=== PATIENT | female | born 1990 | race Caucasian/White ===

== ENCOUNTER 2018-01-07 04:10 | Outpatient (CLI) | payer MEDICAID ==
[~2018-01-07] VITALS: Ht 167.6 cm; Wt 97.1 kg
[~2018-01-07 04:10] MED LIST: FLU60SYR36 IM; HYDR-3503 PO; PREN-127 PO
[2018-01-07 15:06] VITALS: BP 147/84; Ht 167.6 cm; Wt 97.1 kg
[2018-01-07] MEDS ORDERED: LIDOCAINE/SOD BICARB 8.4% SYR ONE (15:26)
--- NOTE | 2018-01-07 15:36 | RADIOLOGY IMAGING REPORT ---
FACILITY: [facility] - [place] PATIENT NAME: Teena Noe : 1990 MR: [id number] V: [id number] EXAM DATE: ORDERING PHYSICIAN: DELORIS DYE TECHNOLOGIST: Location: [facility] - [place] Patient: Teena Noe : 1990 Visit/Account:[id number] Date of Sevice: 01/07/2018 OB ANATOMICAL SURVEY HISTORY: Anatomic survey COMPARISON: None. TECHNIQUE: Transabdominal imaging was performed for assessment of the fetus and maternal pelvic s tructures. Transvaginal imaging was performed to evaluate the cervical os FINDINGS: Intrauterine gestations: One. presentation: Breech/variable. heart rate: 147 bpm. Amniotic fluid volume: Normal; LIUDMILA 16.26 cm; MVP 5.54 cm. Placenta: Anterior. Uterus: Gravid, otherwise grossly unremarkable where visualized. Maternal adnexa/ovaries: Grossly unremarkable, ovaries not visualized. Cervix: The internal cervical os is widely open. Measuring approximately 1.7 cm in diameter. The ex ternal cervical os likewise appears open measuring approximately 8 mm in diameter. There is fluid ch jose length from the internal to external cervical os. Cervical length is approximately 2.6 cm Gestational Parameters: BPD: 5.13 cm, 70 percentile HC: 19.18 cm, 16th percentile AC: 16.47 cm, 61st percentile FL: 3.21 cm, 12th percentile Average ultrasound age (AUA): 21 weeks/ two days Estimated age based on LMP: 21 weeks/ zero days, 48th percentile Estimated weight (EFW): 386 grams +/- 37 grams Anatomic Survey: Intracranial structures, 4-chamber heart, stomach, kidneys, urinary bladder, spine, 3-vessel cord and cord insertion are unremarkable. Two upper and two lower extremities visualized. The profile could not be obtained at this time IMPRESSION: Single viable fetus in breech presentation with an estimated gestational age by measurements of 21 we eks and two days. The estimated weight is 386 g The internal and external cervical os are both open with fluid extending from the internal to the ext ernal cervical os. Cervical length is approximately 2.6 cm Results were called to DELORIS DYE at 01/07/2018 3:32 PM. Report Dictated By: Izzy Machado MD at 01/07/2018 3:12 PM Report E-Signed By: Izzy Machado MD at 01/07/2018 3:33 PM WSN:[email or web address]
--- NOTE | 2018-01-07 16:15 | History & Physical ---
History of Present Illness Age of Patient: 27 : 1 Para or TPAL: 0 EDC per LMP: May 20, 2018 Estimated Gestational Age: 21.0 Chief Complaint dilated cervix History of Present Illness Pt presents to Labor and Delivery directly from radiology where she was getting an anatomical u/s done. Apparently they saw a dilated cervix and sent her from there. My review of images was of a dilated internal os with funneling to the external os but apparently closed cervix. This was later confirmed by exam. Pt denies vaginal bleeding or any significant PTL symptoms. She has felt "crampy" today like menstrual cramps. has been uncomplicated otherwise. Past Medical, Surgical, Family and Obstetric Histories reviewed. Please see ACOG chart. History Allergies: Coded Allergies: No Known Drug Allergies (Unverified , 10/29/12) Family History: FH: hypertension FATHER MOTHER FH: thyroid disease MOTHER Med Rec Home Meds Reported Medications Vits W-Ca,Fe,Fa(<1MG) ( VITAMINS) 1 Each Tablet, 1 EACH PO DAILY, TAB 01/06/18 Discontinued Reported Medications Hydrocodone Bit/Acetaminophen (LORTAB 7.5-500 TABLET) 1 Each Tablet, 1 EACH PO Q6H 10/29/12 Review of Systems All Systems Reviewed/Normal: Yes, Except as Noted Exam General Exam Vital Signs Vital Signs Date Time Temp Pulse Resp B/P (MAP) Pulse Ox O2 Delivery O2 Flow Rate FiO2 01/07/18 15:06 99.4 99 22 147/84 (105) Room Air General Apperance: Alert/Awake/No Acute Distress Neuro: No Gross deficits Eyes: Normal Extraocular Movement & Vison ENT: Normal Cardiovascular: Regular Rate and Rhythm Respiratory: No Respiratory Distress Abdomen: Soft, Non-Tender, Non-Distended, Gravid - Non-Tender Extremities: No Cyanosis,Clubbing or Edema Integumentary: Skin Intact without Lesions or Rash Psychological: Alert & Oriented X3, Appropriate Mood & Affect Cervical Dialation: 0 Cervical Effacement (%): 75 Cervical Consistency: Moderate Cervical Position: Posterior Fetus Heart Tones: 130 (doppler) Assessment and Plan Problems: (1) Cervical insufficiency during in second trimester, antepartum Assessment & Plan: It doesn't appear she is in active labor. This likely represents a slow dilation from a cervical insufficiency problem. Discussed noemi Vila at OBX at [facility] in [place] and he agrees. He recommends she come by private car immediately to [facility] for evaluation by him and probable cerclage placement. I instructed the pt in this and questions answered. BELKIS SUNG MD Jan 07, 2018 16:15
--- NOTE | 2018-01-07 16:18 | Short(Outpt) Discharge Summary ---
Discharge Summary Reason for Hosp/Final Diag: (1) Cervical insufficiency during in second trimester, antepartum Hospital Course & Plan: It doesn't appear she is in active labor. This likely represents a slow dilation from a cervical insufficiency problem. Discussed with Dr. Vila at OBX at [facility] in [place] and he agrees. He recommends she come by private car immediately to [facility] for evaluation by him and probable cerclage placement. I instructed the pt in this and questions answered. Departure Discharge to: Another Hospital (by private transfer) Discharge Instructions Home Meds Reported Medications Vits W-Ca,Fe,Fa(<1MG) ( VITAMINS) 1 Each Tablet, 1 EACH PO DAILY, TAB 01/06/18 Discontinued Reported Medications Hydrocodone Bit/Acetaminophen (LORTAB 7.5-500 TABLET) 1 Each Tablet, 1 EACH PO Q6H 10/29/12 Follow up Referrals: Other Referral @ Obstetrics with [facility] Activity: As Tolerated, No Heavy Lifting, No Exertion Copies to: DELORIS DYE DO; BELKIS SUNG MD ; BELKIS SUNG MD Jan 07, 2018 16:18
== END 2018-01-07 16:30 | disposition home or self-care (01) ==
LOC: US 04:10 → OB 14:50 → UNDOADMIN 14:50 → OB 14:50 → US 16:30 → UNDODISIN 16:30
PROVIDERS: ATTEND Student in an Organized Health Care Education/Training Program
DX: Z34.92 Encounter for supervision of normal pregnancy, unspecified, second trimester (principal)
CPT/HCPCS: 99213

== ENCOUNTER 2018-01-10 12:10 | Outpatient (CLI) | payer MEDICAID ==
[~2018-01-10] VITALS: Ht 167.6 cm; Wt 97.1 kg
[2018-01-10 12:30] VITALS: BP 134/84; Ht 167.6 cm; Wt 97.1 kg
--- NOTE | 2018-01-10 12:53 | History & Physical ---
History of Present Illness EDC per LMP: May 20, 2018 Estimated Gestational Age: 21.3 Chief Complaint Pelvic cramping History of Present Illness 27yo at 21w3d presents with pelvic cramping this morning. She had an emergent cerclage on 01/07/[address] Vila at [facility] after incidental cervical insufficiency found on anatomical ultrasound. She was discharged with Motrin 600mg. She woke up this morning with a constant sharp right pelvic pain. This resolved during her drive here after taking Motrin. No cramping off and on. No back pain. No bleeding or vaginal discharge. She has no other complications. History Patient's Blood Type: A Positive Rubella Status: Immune Group B Strep Screen: Unknown Obstetrical History: Primip Past Medical History: PMH: None PSH: Heel fusion, cerclage insertion Allergies: Coded Allergies: No Known Drug Allergies (Unverified , 10/29/12) Social History: No T/E/D. Family History: FH: hypertension FATHER MOTHER FH: thyroid disease MOTHER Med Rec Home Meds Reported Medications Vits W-Ca,Fe,Fa(<1MG) ( VITAMINS) 1 Each Tablet, 1 EACH PO DAILY, TAB 01/06/18 Discontinued Reported Medications Hydrocodone Bit/Acetaminophen (LORTAB 7.5-500 TABLET) 1 Each Tablet, 1 EACH PO Q6H 10/29/12 Review of Systems Constitutional: No Fever Neurological: No Syncope Eyes: No Vision Change Cardiovascular: No Chest Pain, No Palpitations Respiratory: No Shortness of Breath Gastrointestinal: No Nausea, No Vomiting, No Diarrhea Genitourinary: No Dysuria Musculoskeletal: No Pain Psychiatric: No Depression, No Anxiety Exam General Exam Vital Signs VS reviewed General Apperance: Alert/Awake/No Acute Distress Neuro: No Gross deficits Eyes: Normal Extraocular Movement & Vison Respiratory: No Respiratory Distress Abdomen: Gravid - Non-Tender Extremities: No Cyanosis,Clubbing or Edema Integumentary: Skin Intact without Lesions or Rash Psychological: Alert & Oriented X3, Appropriate Mood & Affect Fetus Heart Tones: 150 Assessment and Plan Problems: (1) Cervical insufficiency during in second trimester, antepartum Assessment & Plan: 27yo at 21w3d presents with constant pelvic pain this morning, 3 days postop from emergent cerclage. She has no signs/sx of labor or uterine activity. No indication for pelvic exam today. Will monitor toco and if remains flat, will discharge to home with follow up as scheduled tomorrow. Discussed precautions for bleeding, cramping, fever. GERMAN ELLIS MD Jan 10, 2018 12:53
--- NOTE | 2018-01-10 12:54 | Short(Outpt) Discharge Summary ---
Discharge Summary Reason for Hosp/Final Diag: (1) Cervical insufficiency during in second trimester, antepartum Hospital Course & Plan: 27yo at 21w3d presents with constant pelvic pain this morning, 3 days postop from emergent cerclage. She has no signs/sx of labor or uterine activity. No indication for pelvic exam today. Will monitor toco and if remains flat, will discharge to home with follow up as scheduled tomorrow. Discussed precautions for bleeding, cramping, fever. Departure Discharge to: Home, Self Care Discharge Instructions Home Meds Reported Medications Vits W-Ca,Fe,Fa(<1MG) ( VITAMINS) 1 Each Tablet, 1 EACH PO DAILY, TAB 01/06/18 Discontinued Reported Medications Hydrocodone Bit/Acetaminophen (LORTAB 7.5-500 TABLET) 1 Each Tablet, 1 EACH PO Q6H 10/29/12 Follow up Referrals: GYMNASTICS INSTRUCTOR - 01/11/18 @ [facility] with DELORIS DYE DO Diet: Regular Activity: As Tolerated GERMAN ELLIS MD Jan 10, 2018 12:54
== END 2018-01-10 14:00 | disposition home or self-care (01) ==
LOC: OB 12:10 → L&D 12:10 → UNDOADMIN 12:10 → OB 12:10 → L&D 14:00 → UNDODISIN 14:00 → EDSTATUS 01-12 07:50
PROVIDERS: ATTEND Obstetrics & Gynecology
DX: O26.872 Cervical shortening, second trimester (principal); O99.89 Other specified diseases and conditions complicating pregnancy, childbirth and the puerperium; Z3A.21 21 weeks gestation of pregnancy
CPT/HCPCS: 99213

== ENCOUNTER → 2018-01-28 | Outpatient (CLI) | payer SELFPAY ==
[2018-01-10 12:30] VITALS: BMI 34.5
--- NOTE | 2018-01-28 10:03 | RADIOLOGY IMAGING REPORT ---
FACILITY: [facility] [place] PATIENT NAME: Teena Noe : 1990 MR: [id number] V: [id number] EXAM DATE: ORDERING PHYSICIAN: DELORIS DYE TECHNOLOGIST: Location: [facility] - [place] Patient: Teena Noe : 1990 Visit/Account:[id number] Date of Sevice: 01/28/2018 Exam type: OB LIMITED History: Follow-up profile images. Patient status post cerclage Comparison: December 30, 2017. Findings: There is a single fetus in breech presentation. heart rate is 161 bpm Placenta is anterior Images of the profile are unremarkable The cervical length is 4.32 cm. The internal cervical os is open measuring 2.35 cm in diameter. The external cervical os appears closed as the patient is status post cerclage IMPRESSION: 1. Profile images appear unremarkable Single fetus in breech presentation The cervical length is 4.32 cm. The internal cervical os is open measuring 2.35 cm in diameter howev er the external cervical os appears closed as the patient is status post a recent cerclage procedure Report Dictated By: Izzy Machado MD at 01/28/2018 9:56 AM Report E-Signed By: Izzy Machado MD at 01/28/2018 9:58 AM WSN:[email or web address]
== END ==
LOC: US 02:48
PROVIDERS: ATTEND Student in an Organized Health Care Education/Training Program
DX: Z02.9 Encounter for administrative examinations, unspecified (principal)

== ENCOUNTER → 2018-03-01 | Outpatient (CLI) | payer MEDICAID ==
[2018-01-10 12:30] VITALS: BMI 34.5
[~2018-03-01] MED LIST changes: +DIPH0.5D12 IM
== END ==
LOC: LAB 08:41
PROVIDERS: ATTEND Student in an Organized Health Care Education/Training Program
DX: O09.92 Supervision of high risk pregnancy, unspecified, second trimester (principal); Z3A.28 28 weeks gestation of pregnancy
CPT/HCPCS: 36415; 82950; 85027

== ENCOUNTER → 2018-04-06 | Outpatient (CLI) | payer MEDICAID ==
[2018-01-10 12:30] VITALS: BMI 34.5
[~2018-04-06] MED LIST changes: +AMOX-559 PO; +BET6I IM ONLY; +BLOO-292; +BLOO-960 MC; +IBUP800T37 PO; +LANC-165; +METR500T15 PO; +NIFE10CA38 PO; +OXYC-865 PO
== END ==
LOC: LAB 10:59
PROVIDERS: ATTEND Advanced Practice Midwife
DX: O26.893 Other specified pregnancy related conditions, third trimester (principal); N89.8 Other specified noninflammatory disorders of vagina
CPT/HCPCS: 84112

== ENCOUNTER → 2018-04-13 | Outpatient (CLI) | payer MEDICAID ==
[~2018-04-13] VITALS: Ht 167.6 cm; Wt 108.0 kg
[~2018-04-13] MED LIST changes: -AMOX-559 PO; +BETAMETHASONE/ACETATE 6 MG/1ML IM ONLY ONE; -METR500T15 PO; +NIFEdipine 10 MG CAP PO ONE; +NIFEdipine 10 MG CAP PO SCH
[2018-04-13] MEDS: LR(*) 1000 ML BAG 1,000 ML IV PRN ×2 (17:55→19:00)
[2018-04-13 21:46] VITALS: BP 136/85; Ht 167.6 cm; Wt 108.0 kg
== END ==
LOC: L&D 04-13 16:48 → UNDOADMIN 16:48 → OB 16:48 → L&D 16:48 → UNDODISIN 21:00 → EDSTATUS 04-18 09:36
PROVIDERS: ATTEND Student in an Organized Health Care Education/Training Program
DX: O62.0 Primary inadequate contractions (principal); Z3A.34 34 weeks gestation of pregnancy
CPT/HCPCS: 59025; J0702; J7120

== ENCOUNTER 2018-04-16 19:33 | Inpatient (IN) | payer MEDICAID ==
[2018-04-13 21:46] VITALS: Wt 110.2 kg
[~2018-04-16 19:33] MED LIST changes: -BETAMETHASONE/ACETATE 6 MG/1ML IM ONLY ONE; -IBUP800T37 PO; -NIFEdipine 10 MG CAP PO ONE; -NIFEdipine 10 MG CAP PO SCH; -OXYC-865 PO
[2018-04-16] MEDS ORDERED: NIFEdipine 10 MG CAP PO ONE ×2 (20:50→21:50)
[2018-04-16] MEDS: LR(*) 1000 ML BAG 1,000 ML IV PRN (21:04)
[2018-04-16] MEDS ORDERED: APAP/HYDROCODONE 325/5 TAB PO PRN (21:50)
[2018-04-16] MEDS ORDERED: ACETAMINOPHEN 500 MG TAB PO PRN (21:50)
[2018-04-16] MEDS ORDERED: ONDANSETRON 4 MG/2 ML VIAL IVP PRN (22:25)
--- NOTE | 2018-04-16 22:55 | History & Physical ---
History of Present Illness Age of Patient: 28 : 1 Para or TPAL: 0 EDC per LMP: May 20, 2018 Estimated Gestational Age: 35.1 Chief Complaint Contractions History of Present Illness Pt is a 28 y/o @ 35-1/7 weeks gestation awho presents to L&D with a chief complaint of Painful contractions. Reports contractions started later this evening and have gotten progressively closer together. Pt reports she feels these are now less then 3 minutes apart. Pt reports no gush of fluid. No vaginal bleeding. Good movement. History Patient's Blood Type: A Positive Rubella Status: Immune Group B Strep Screen: Unknown Obstetrical History: Emergency cerclage at 20 weeks gestation by [facility] in [place] Past Medical History: Non contributory Allergies: Coded Allergies: No Known Drug Allergies (Unverified , 10/29/12) Social History: No T/E/D. Family History: FH: hypertension FATHER MOTHER FH: thyroid disease MOTHER Med Rec Home Meds Active Scripts Nifedipine (PROCARDIA) 10 Mg Capsule, 10 MG PO Q4H PRN for CONTRACTIONS, #20 CAPSULE 0 Refills Prov:DELORIS DYE DO 04/14/18 True Metrix Glucose Test Strip (True Metrix Glucose Test Strip) 1 Each Strip, BOX QID, #1 3 Refills Prov:DELORIS DYE DO 03/17/18 Lancets (Blood Lancets) 30 Gauge Each, BOX QID, #1 3 Refills Prov:DELORIS DYE DO 03/17/18 Blood-Glucose Meter (BLOOD GLUCOSE METER) 1 Each Each, EACH MC, #1 0 Refills Prov:DELORIS DYE DO 03/17/18 Reported Medications Vits W-Ca,Fe,Fa(<1MG) ( VITAMINS) 1 Each Tablet, 1 EACH PO DAILY, TAB 01/06/18 Review of Systems All Systems Reviewed/Normal: Yes, Except as Noted Constitutional: No Fever, No Weight Loss, No Weight Gain, No Chills, No Night Sweats, No Other Neurological: No Syncope, No Confusion, No Weakness, No Dizziness, No Slurred Speech, No Other Eyes: No Vision Change, No Loss of Vision, No Photophobia, No Other ENT: No Hearing Loss, No Sinus Congestion, No Sore Throat, No Ear Ache, No Tinnitus, No Other Cardiovascular: No Chest Pain, No Palpitations, No Orthostatic Hypotension, No Other Respiratory: No Shortness of Breath, No Cough, No Wheezing, No Other Gastrointestinal: No Nausea, No Vomiting, No Diarrhea, No Dysphagia, No Constipation, No Early Satiety, No Hematemesis, No Hematochezia, No Melena, No Abdominal Pain, No Other Genitourinary: No Dysuria, No Hematuria, No Urinary Incontinence, No Other Musculoskeletal: No Pain, No Sprain, No Strain, No Impaired Mobility, No Other Psychiatric: No Depression, No Anxiety, No Other Exam General Exam General Apperance: Alert/Awake/No Acute Distress Neuro: No Gross deficits Eyes: Normal Extraocular Movement & Vison ENT: Normal Cardiovascular: Regular Rate and Rhythm Respiratory: No Respiratory Distress Cervical Dialation: 0 Fetus Heart Tones: 140 Heart Tone Variabilty: Moderate FHT Accelerations: 15X15 FHT Decelerations: None Medical Decision Making Pre-Admit Course Medical Record Review: Yes VTE Prophylasis: Adult Deep Vein Thrombosis/Pulmonary: No 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 Received Betamethasone 04/13/18 and 04/14/18. Discussed patient findings with [facility] who suggests seeing if there is any improvement with Nifedipine and if unable to slo w or stop contractions then consider removing cerclage. Pt has received 20 mg Nifedipine po and seems to be improving. If that changes will remove cerclage and monitor patient overnight. DELORIS DYE DO Apr 16, 2018 22:55
[2018-04-17] VITALS (12 sets, daily range): BP systolic 109–145; BP diastolic 55–94
[2018-04-17] MEDS ORDERED: CALCIUM CARBONATE 500 MG CHEW PO PRN (01:10)
[2018-04-17] MEDS: NIFEdipine 10 MG CAP PO PRN ×4 (01:33→10:40)
[2018-04-17] MEDS ORDERED: fentaNYL CITR 100 MCG/2 ML AMP IT PRN (06:15)
[2018-04-17] MEDS ORDERED: EPIDURAL KEYS XX PRN (06:15)
[2018-04-17] MEDS ORDERED: FENTANYL/ROPIVACAINE 100 ML BAG EPI PRN (06:15)
[2018-04-17] MEDS ORDERED: LIDO/EPI 2% MPF 1:200,000 20ML EPI PRN (06:15)
[2018-04-17] MEDS ORDERED: LIDOCAINE/PF 2% 200MG/10ML AMP 200 MG/10 ML AMPUL EPI PRN (06:15)
[2018-04-17] MEDS ORDERED: BUPIVACAINE 0.5% INJ 30ML VIAL EPI PRN (06:15)
[2018-04-17] MEDS ORDERED: BUPIVACAINE 0.25% MPF INJ EPI PRN (06:15)
--- NOTE | 2018-04-17 06:15 | Labor Progress Note ---
Labor Subjective Progress Notes Subjective Still feeling contractions but they aren't as regular. Pain controlled with po pain medication. Still using procardia with minimal help. Pt does report spotting after using the restroom with in the last hour. 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 I will plan to get an EFW and presentation of the baby. Will plan for epidural later this morning and cerclage removal. DELORIS DYE DO Apr 17, 2018 06:15
[2018-04-17] MEDS ORDERED: APAP/HYDROCODONE 325/5 TAB PO ONE (07:00)
--- NOTE | 2018-04-17 08:06 | Anesthesia OB Pre-Anes Eval ---
History of Present Illness OB Anesthesia Diagnosis: gestational hypertension (required emergency cerclage at 20 weeks gestation), other (removal of cerclage) Current Complication: gestational hypertention EDC: May 20, 2018 : 1 Para: 0 Weight (Pounds): 238 Past Medical History Medical History: obesity Surgical History: noncontributory Previous Anesthesia: general, spinal Attended Childbirth Classes?: No Hx Anesthesia Reactions: No Hx Family Anesthesia Reaction: No Home Meds Active Scripts Nifedipine (PROCARDIA) 10 Mg Capsule, 10 MG PO Q4H PRN for CONTRACTIONS, #20 CAPSULE 0 Refills Prov:DELORIS DYE DO 04/14/18 True Metrix Glucose Test Strip (True Metrix Glucose Test Strip) 1 Each Strip, BOX QID, #1 3 Refills Prov:DELORIS DYE DO 03/17/18 Lancets (Blood Lancets) 30 Gauge Each, BOX QID, #1 3 Refills Prov:DELORIS DYE DO 03/17/18 Blood-Glucose Meter (BLOOD GLUCOSE METER) 1 Each Each, EACH MC, #1 0 Refills Prov:ANDREA DYEK DO 03/17/18 Reported Medications Vits W-Ca,Fe,Fa(<1MG) ( VITAMINS) 1 Each Tablet, 1 EACH PO DAILY, TAB 01/06/18 Allergies: Coded Allergies: No Known Drug Allergies (Unverified , 10/29/12) Anesthesia OB ROS Neurological: No migraines/headaches, No seizures, No neuropathy, No other ENT: Denies Tooth caps, Denies Loose teeth, Denies Chipped teeth, Denies Dentures, Denies Bridges, Denies Retainers, Denies Veneers, Denies Implants, Denies Tongue ring, Denies Other Pulmonary: No asthma, No smoker (pks/day/yrs), No other Airway Class: lll Cardiovascular ROS: No edema, No arrhythmia, No other GI ROS: NPO ROS: No Herpes, No STD(s), No Liver Disease, No Renal Disease, No Other Endocrine ROS: No diabetes, No gestational diabetes, No thyroid disorder, No other Musculoskeletal ROS: No low back pain, No low back injury, No scoliosis, No other ASA Classification: 3 Assessment and Plan Anesthesia Plan: ALISIA AG CRNA Apr 17, 2018 08:06
[2018-04-17] MEDS ORDERED: ceFAZolin(*) 2GM/D5W 50ML 50 ML IVPB PRN (08:31)
[2018-04-17] MEDS ORDERED: FAMOTIDINE(*) 20MG/50ML PREMIX 50 ML IVPB PRN (08:31)
[2018-04-17 09:06] LABS: PLATELET COUNT, AUTOMATED 267 K/uL (150-450)
[2018-04-17] MEDS: LR(*) 1000 ML BAG 1,000 ML IV PRN ×2 (09:40→12:15)
--- NOTE | 2018-04-17 10:45 | RADIOLOGY IMAGING REPORT ---
FACILITY: [facility] - [place] PATIENT NAME: Teena Noe : 1990 MR: [id number] V: [id number] EXAM DATE: ORDERING PHYSICIAN: DELORIS DYE TECHNOLOGIST: [place] [facility] [place] Noe : 1990 Visit/Account:[id number] Date of Sevice: 04/17/2018 OB Ultrasound > 14 weeks with anatomic evaluation HISTORY: Cerclage removal COMPARISON STUDIES: OB ultrasound January 28, 2018 FINDINGS: Intrauterine gestations: one presentation: Breech heart rate: 129 bpm Amniotic fluid index: 20.1 cm Largest amniotic fluid pocket 7.93 cm Placenta: Anterior without previa Uterus: gravid, otherwise normal Maternal adnexa: Unremarkable Cervix: Not visualized Gestational Parameters: BPD: 8.70 cm 35 weeks 1 day, 50th percentile HC: 32.14 cm 36 weeks 2 days 41st percentile AC: 32.09 cm 36 weeks 1 day, 77th percentile FL: 6.95 cm 35 weeks 5 days, 53rd percentile Average ultrasound age (AUA): 35 weeks 6 days SEVERIANO: May 16, 2018 Estimated weight (EFW): 2784 g, 65th percentile by LMP Anatomic Survey: Not performed IMPRESSION: 1. Single live intrauterine gestation; estimated ultrasound age 35 weeks, 6 days. This correlates shanique ropriately with the LMP.. 2. Breech positioning. LIUDMILA: 20.1 cm Report Dictated By: Edwin Velasco MD at 04/17/2018 10:25 AM Report E-Signed By: Edwin Velasco MD at 04/17/2018 10:41 AM WSN:[id number]
--- NOTE | 2018-04-17 11:32 | Labor Progress Note ---
Labor Subjective Progress Notes Subjective Pt reports she is still having contractions. Reports she has developed more spotting vaginally. No loss of amniotic fluid. Good movement. Contractions managed with Nifedipine but still speedy regularly. 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 Still speedy with procardia on board. Discussed patient care with MFM who recommends leaving the cerclage in place and not attempting an ECV. Delivery and then removal of the cerclage post delivery. DELORIS DYE DO Apr 17, 2018 11:32
[2018-04-17] MEDS ORDERED: OXYTOCIN 10 UNIT/ML SDV ONE (12:05)
[2018-04-17] MEDS ORDERED: fentaNYL CITR 100 MCG/2 ML AMP ONE (12:07)
[2018-04-17] MEDS ORDERED: MORPHINE PF 5 MG/10 ML AMP ONE (12:07)
[2018-04-17] MEDS ORDERED: KETOROLAC 30 MG/ML VIAL ONE (13:34)
[2018-04-17] MEDS ORDERED: NALBUPHINE HCL 10 MG/ML AMP IVP PRN (14:20)
[2018-04-17] MEDS ORDERED: diphenhydrAMINE 50 MG/ML VIAL IV PRN (14:20)
--- NOTE | 2018-04-17 14:20 | Procedure Note ---
Anesthetic Placement Note Anesthesia Plan: SAB Permit for Anesthesia Signed: Yes Anesthesia Technique: Lateral Anesthesia Prep: Chlorhexidine Interspace: L 4-5 Local Anesthetic: 1% Lidocaine, 25 Gauge Needle Amount Local - cc's: 5 Anesthesia Needle: 25g Pencan w/Introducer Anesthesia Attempts: 1 (with 2 needle redirections) Cerebral Spinal Fluid: Yes, Clear Anesthesia Tray: Lot Number ([id number]), Expiration Date (02/09/2019), Reference Number ([id number]) Anesthesia Medications: Intrathecal Dose: mcg Fentanyl (15), mg Marcaine MPF, mg Astromorph (0.15), mg Spinal Bupivicaine (12.75), Time (1245) Complications: None ALISIA LAINEZ CRNA Apr 17, 2018 14:20
--- NOTE | 2018-04-17 14:36 | NUR ---
1404 PT REC'D IN PACU VIA CART, SAFETY MAINTAINED, SBAR REPORT FROM Angelia LAINEZ CRNA. PT IN MINIMAL PAIN, NO NAUSEA 1415 SPINAL LEVEL S1, PAIN 3/10 WITH FUNDAL MASSAGE, 1/10 AT REST, 50ML RED URINE WITH CLOTS EMPTIED FROM CATHETER. UPDATED ON BABY'S CONDITION BYB NURSERY NURSE 1427 PT TOLERATING ICE CHIPS, FUNDAL MASSAGE, UTERUS FIRMS UP WITH MASSAGE, PASSED SMALL CLOT 1430 STUART CARE PROVIDED, PT PASSED SOME STOOL, HOB ELEVATED SLIGHTLY, NO RESPORTS OF HEADACHE 1441 PARTNER CRISTIN AT BEDSIDE 1445 FUNDAL MASSAGE, UTERUS FIRMS UP WITH MASSAGE, STILL IN SAME POSITION
[2018-04-17] MEDS ORDERED: OXYTOCIN 30 UNIT/D5LR 500 ML 500 ML IV PRN (15:16)
--- NOTE | 2018-04-17 15:16 | Labor Progress Note ---
Labor Subjective Progress Notes Subjective Late Timed note: Pt was having increased pressure. Increasing fluid discharge. 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 Pt to go to the OR for delivery for PTL. DELORIS DYE DO Apr 17, 2018 15:16
[2018-04-17] MEDS ORDERED: PROMETHAZINE 25 MG/ML 1 ML AMP IVP PRN (15:20)
[2018-04-17] MEDS ORDERED: LANOLIN OINT 7 GM TUBE TP PRN (15:20)
[2018-04-17] MEDS ORDERED: ACETAMINOPHEN 325 MG TAB PO PRN (15:20)
[2018-04-17] MEDS ORDERED: ONDANSETRON 4 MG/2 ML VIAL IV PRN (15:20)
[2018-04-17] MEDS ORDERED: SIMETHICONE 80 MG CHEW CHEW PRN (15:20)
[2018-04-17] MEDS ORDERED: ZOLPIDEM TARTRATE 5 MG TAB PO PRN (15:20)
--- NOTE | 2018-04-17 15:42 | Post Operative Note ---
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 3 vc/ip. Normal tubes and ovaries bilaterally. Footling breech. Procedure(s): 1LTCS Cerclage removal Specimen Removed:(Maybe N/A): Placental Cultures Placenta Complications: 0 known Fluids Fluids: 600 LR u/o 200 Estimated Blood Loss: 800 Dictated Date OP Note Dictated: Apr 17, 2018 DELORIS BERRY DO Apr 17, 2018 15:42
[2018-04-17] MEDS: DLR(*) 1000 ML BAG 1,000 ML IV PRN (16:29)
[2018-04-17] MEDS: GENTAMICIN/NS 80 MG/100 ML PB 100 ML IVPB SCH ×2 (16:29→23:49)
[2018-04-17] MEDS: CLINDAMYCIN 900 MG/6 ML 900 MG in NS(*) 0.9% 100 ML BAG 100 ML IVPB SCH (17:34)
[2018-04-17] MEDS: AMPICILLIN 2 GM VIAL 2 GM in NS(*) 0.9% 100 ML ADDVANT BAG 100 ML IVPB SCH ×2 (18:30→23:12)
[2018-04-17] MEDS ORDERED: FAMOTIDINE(*) 20MG/50ML PREMIX 50 ML IVPB ONE (19:56)
[2018-04-17] MEDS: DOCUSATE CALCIUM 240 MG CAP PO SCH (20:32)
[2018-04-17] MEDS: KETOROLAC 30 MG/ML VIAL IVP SCH (20:32)
[2018-04-17] MEDS: FAMOTIDINE 20 MG TAB PO SCH (20:32)
[2018-04-18] MEDS: CLINDAMYCIN 900 MG/6 ML 900 MG in NS(*) 0.9% 100 ML BAG 100 ML IVPB SCH ×3 (01:26→17:45)
[2018-04-18] MEDS: KETOROLAC 30 MG/ML VIAL IVP SCH ×2 (02:35→07:49)
--- NOTE | 2018-04-18 02:44 | OPERATIVE REPORT 1 ---
EVENT DATE: April 17, 2018 SURGEON: Matthew Berry DO ANESTHESIA: Spinal, Sarthak Jansen CRNA SECRETARY BOARD OF COMMISSIONERS: Kat Mejía, Certified Nurse Maitre D PREOPERATIVE DIAGNOSIS 1. A 28-year-old 1, para 0, at 35-2/7 weeks' gestation. 2. labor. 3. Cerclage secondary to cervical incompetence at 20 weeks. 4. Breech presentation. POSTOPERATIVE DIAGNOSIS 1. A 28-year-old 1, para 0, at 35-2/7 weeks' gestation. 2. labor. 3. Cerclage secondary to cervical incompetence at 20 weeks. 4. Breech presentation. 5. Delivered. PROCEDURE Primary low transverse /cerclage removal. FINDINGS Live born male infant at 1302 with Apgars of 8 and 9, weighing 2620 g, 5 pounds 12 ounces. Three-vessel cord, intact placenta, normal tubes and ovaries bilaterally. Baby was noted to be footling breech. PATHOLOGY Placenta cultures as well as placenta. ESTIMATED BLOOD LOSS 800 mL. URINE OUTPUT 200 mL. INTRAVENOUS FLUIDS Lactated Ringer's 600 mL. COMPLICATIONS None known. CONDITION Stable x2. Mother to the recovery room and infant to the nursery for respiratory support secondary to prematurity. COUNTS Correct for all needles, laps, sponges, and instruments. LABOR SUMMARY Patient is a 28-year-old 1, para 0, at 35-2/7 weeks' gestation, who presents to clinic with a chief complaint of painful contractions. Patient is a known patient to have cervical incompetence and had a cerclage placed at 20 weeks. Patient was speedy roughly every three to six minutes regularly. She was given Procardia 20 mg every three hours to help with contractions. This did slow down contractions, but ultimately patient began to have some vaginal bleeding. It was discussed with Maternal- Medicine that, because of the vaginal bleeding, there was a good chance she was laboring. It was also discussed the possibility of transfer to a large facility for NICU support. Prior to transport, patient reported a significant amount of fluid vaginally. Speculum exam was performed, and bulging amniotic membranes were noted in the vagina, so at this point the patient was counseled for a delivery secondary to breech presentation with advanced cervical dilatation and labor. Patient signed the appropriate consents. Antibiotics were given, and the patient was taken to the operating room. DESCRIPTION OF PROCEDURE Patient was taken to the operating room, where she had spinal anesthesia placed. Once spinal anesthesia was placed, she was then placed in the dorsal supine position. She was then prepped and draped in the usual sterile manner. A Pfannenstiel skin incision was then made with a scalpel. This was carried sharply down to the layer of the fascia. Once the fascia was visualized, it was notched bilaterally. Harkins scissors were then used to extend that incision laterally. Rectus muscles were dissected off of the rectal fascia both inferiorly and superiorly. Rectus muscles were in the midline. Peritoneum was entered sharply with Metzenbaum scissors. Gentle stretch was performed. Bladder blade was placed. A bladder flap was created using Metzenbaum scissors and [place] pickups. A low transverse incision was then created on the uterus with a scalpel down to the layer of the amnion. Once the amnion was visualized, it was ruptured bluntly with surgeon's finger. A very foul-smelling, purulent amniotic fluid that was clear came through the hysterotomy. At this point, the surgeon's hand was placed into the hysterotomy down into the pelvis. The infant's feet were grasped and brought to the level of the hysterotomy without any difficulty. The was spine-down. It was easily turned to spine-up. Gentle traction was performed with the surgeon's hands on the sacrum and over the ASIS bilaterally. This was performed until the shoulders were visualized. The left shoulder was the first shoulder to be seen. The left arm was brought through the hysterotomy by flexing at the elbow and gently sweeping through and out of the hysterotomy. The infant was then turned. The same procedure was performed to deliver the right arm without any difficulty. At this point, the SMV maneuver was used to deliver the infant's head with the surgeon's fingers placed on the maxilla. The 's head was flexed, and with gentle pressure, the 's head was brought through the hysterotomy. At this point, a vigorous male infant was delivered. Mouth and nose were bulb- suctioned. The cord was clamped x2 and handed to awaiting nursing staff to take to the warmer to be vigorously cleaned and dried. Cord blood gas were obtained. The placenta delivered spontaneously with manual traction. The uterus was then exteriorized, cleaned of all clot and debris. The hysterotomy was then closed with a 0 Monocryl in a running manner. An imbrication stitch was then used to help with hemostasis. The posterior gutter was cleaned of all clot and debris. The uterus was placed back inside the abdomen. Secondary to the foul-smelling amniotic fluid, the abdominal cavity was irrigated with copious amounts of normal saline. The peritoneum was then closed with a running 3-0 Monocryl. The fascia was then closed with a 0 looped PDS. The subcutaneous tissue was closed with a 3-0 Monocryl. The skin was then closed with a 4-0 Monocryl in a subcuticular manner. The skin incision then had a Dermabond placed over the incision. The patient was then cleaned and was set up for cerclage removal. Cerclage Removal: The patient was then placed in dorsal lithotomy position. A speculum was placed inside the vagina. The cervix was visualized. It was noted that there appeared to be two knot towers. Each tower was grasped with a ring forceps. Metzenbaum scissors were then used to cut one side of the knot, pulling each cerclage through the cervix intact in its entirety. At this point, the patient was then cleaned, taken out of the lithotomy position, and then transferred to the recovery room in stable condition. ALANNAH
[2018-04-18 02:48] VITALS: BP 105/61
[2018-04-18] MEDS: AMPICILLIN 2 GM VIAL 2 GM in NS(*) 0.9% 100 ML ADDVANT BAG 100 ML IVPB SCH ×3 (05:22→18:46)
[2018-04-18] MEDS: DLR(*) 1000 ML BAG 1,000 ML IV PRN (05:22)
[2018-04-18] MEDS: GENTAMICIN/NS 80 MG/100 ML PB 100 ML IVPB SCH (07:49)
[2018-04-18 07:50] VITALS: BP 122/64
[2018-04-18 08:15] LABS: PLATELET COUNT, AUTOMATED 212 K/uL (150-450)
[2018-04-18] MEDS: FAMOTIDINE 20 MG TAB PO SCH ×2 (09:04→21:39)
[2018-04-18] MEDS: DOCUSATE CALCIUM 240 MG CAP PO SCH ×2 (09:04→21:39)
--- NOTE | 2018-04-18 10:31 | OB/GYN Progress Note ---
OB Subjective Progress Notes Subjective 20-year-old status post primary low-transverse section for labor and breech presentation. Patient reports fever last night around 6 PM. Denies any fevers overnight otherwise. Patient is pumping as baby is in the nursery on high flow oxygen. Reports pain well controlled. Has not voided as she still has Tejada catheter. Ambulatory and room only. GI: NEG Nausea, NEG Vomiting, NEG Flatus, NEG Bowel Movement : Vaginal Bleeding, Scant Pain: Mild, Comfortable, Tolerating PO Pain Meds Neurological: No Headache, No Other Eyes: No Visual Disturbances OB Objective Physical Exam Vital Signs Date Time Temp Pulse Resp B/P (MAP) Pulse Ox O2 Delivery O2 Flow Rate FiO2 04/18/18 07:50 99.5 118 18 122/64 (83) 94 Room Air Intake and Output 04/18/18 06:59 Intake Total 2374 ml Output Total 1075 ml Balance 1299 ml Intake Oral 240 ml IV Total 2134 ml Output Urine Total 1075 ml General Appearance: Alert/Awake/No Acute Distress Neurological: No Gross deficits Eyes: Normal Extraocular Movement & Vison ENT: Normal Neck: No Masses Cardiovascular: Normal Rhythm & Peripheral Pulses, Regular Rate and Rhythm Respiratory: No Respiratory Distress Abdomen: Soft, Non-Tender, Non-Distended, Fundus Firm, Non-Tender Incision: Clean, Dry, Intact, Dermabond, Other (Old blood at middle of inc ision. ) : Normal Musculoskeletal: No Weakness/Pain Extremities: No Cyanosis,Clubbing or Edema Integumentary: Skin Intact without Lesions or Rash Psychological: Alert & Oriented X3, Appropriate Mood & Affect Result Diagram: 04/18/18 0805 Assessment and Plan POLISHER ALUMINUM Assessment: Stable POLISHER ALUMINUM Plan: Routine Post-Op Care Problems: (1) contractions Status: Resolved Assessment & Plan: Patient continue postoperative antibiotics including clindamycin, ampicillin, and gentamicin until 24 hours post fever. Patient on antibiotics secondary to chorioamnionitis with a . Patient last fever at 1800 on 04/17/2018. Patient had Tejada catheter discontinued today. Increase ambulation. Continue post /postoperative care. (2) Status post delivery DELORIS DYE DO Apr 18, 2018 10:31
--- NOTE | 2018-04-18 10:53 | Anesthesia Post Eval Note ---
Anesthesia Post Eval Note Vital Signs Date Time Temp Pulse Resp B/P (MAP) Pulse Ox O2 Delivery O2 Flow Rate FiO2 04/18/18 07:50 99.5 118 18 122/64 (83) 94 Room Air Pt able to participate in Eval: Yes Cardiovascular Status: Satisfactory Respiratory Status: Satisfactory Pain Managment: Satisfactory PO Nausea/Vomiting: Satisfactory Temperature Management: Satisfactory Mental Status: Satisfactory, Alert, Oriented X3 Post-Op Hydration Status: Satisfactory, Tolerating PO Well, Voiding w/o Difficulty Anesthesia Type: ALISIA AG CRNA Apr 18, 2018 10:53
[2018-04-18 12:20] VITALS: BP 124/61
--- NOTE | 2018-04-18 13:12 | Antimicrobial Stewardship ---
Antimicrobial Stewardship Empiricly appropriate: Yes Comment Patient on Ampicillin, clindamycin and gentamicin IV secondary to chorioamnionitis with . Approriate Cultures done: Yes Reviewed for Drug Interaction: Yes Monitored for Toxicities: Yes Clinically stable/improving: Yes Determine cumulative duration: Continue antibiotics until afebrile 24 hours MELODY CESPEDES Apr 18, 2018 13:12
[2018-04-18] MEDS: IBUPROFEN 800 MG TAB PO SCH ×2 (13:58→21:39)
[2018-04-18] MEDS ORDERED: GENTAMICIN/NS 80 MG/100 ML PB 100 ML IVPB SCH (16:00)
[2018-04-18 16:30] VITALS: BP 115/61
[2018-04-18 20:35] VITALS: BP 120/66
[2018-04-19 01:38] VITALS: BP 118/58
[2018-04-19 03:05] VITALS: BP 108/63
[2018-04-19] MEDS: IBUPROFEN 800 MG TAB PO SCH (05:55)
[2018-04-19 08:04] VITALS: BP 112/55
[2018-04-19] MEDS: DOCUSATE CALCIUM 240 MG CAP PO SCH (08:23)
[2018-04-19] MEDS: FAMOTIDINE 20 MG TAB PO SCH (08:23)
--- NOTE | 2018-04-19 10:05 | OB/GYN Progress Note ---
OB Subjective Progress Notes Subjective Doing good this morning. Reports pain when getting out of bed but feels it gets better with movement. No heavy bleeding. Lochia appropriate. Tolerating regular diet. Ambulatory. Pumping. GI: NEG Nausea, NEG Vomiting, NEG Flatus, NEG Bowel Movement : Voiding Well, Vaginal Bleeding, Moderate Pain: Mild, Comfortable, Tolerating PO Pain Meds Neurological: No Headache, No Other Eyes: No Visual Disturbances OB Objective Physical Exam Vital Signs Date Time Temp Pulse Resp B/P (MAP) Pulse Ox O2 Delivery O2 Flow Rate FiO2 04/19/18 03:05 97.9 79 20 108/63 (78) 94 Room Air Intake and Output 04/19/18 06:59 Intake Total 1906 ml Output Total 2650 ml Balance -744 ml Intake Oral 1400 ml IV Total 506 ml Output Urine Total 2650 ml # Voids 3 General Appearance: Alert/Awake/No Acute Distress Neurological: No Gross deficits Eyes: Normal Extraocular Movement & Vison ENT: Normal Neck: No Masses Cardiovascular: Normal Rhythm & Peripheral Pulses, Regular Rate and Rhythm Respiratory: No Respiratory Distress Abdomen: Soft, Non-Tender, Non-Distended, Fundus Firm, Non-Tender Incision: Clean, Dry, Intact, Dermabond, Other (Old blood at middle of incision. ) : Normal Musculoskeletal: No Weakness/Pain Extremities: No Cyanosis,Clubbing or Edema Integumentary: Skin Intact without Lesions or Rash Psychological: Alert & Oriented X3, Appropriate Mood & Affect Result Diagram: 04/18/18 0805 Assessment and Plan Problems: (1) contractions Status: Resolved (2) Status post delivery Assessment & Plan: Plan for discharge today. Baby is getting transferred to [facility] for prematurity. Follow up when baby is discharged. DELORIS DEY DO Apr 19, 2018 10:04
[2018-04-19] MEDS ORDERED: IBUP800T37 PO (10:07)
[2018-04-19] MEDS ORDERED: OXYC-865 PO (10:07)
--- NOTE | 2018-04-19 10:10 | OB/GYN Discharge Summary ---
Discharge Summary Reason for Hosp/Final Diag: (1) contractions Status: Resolved (2) Status post delivery Hospital Course & Plan: Pt presented with complaint of contractions. Eventually became laborous and had bulging amniotic membranes. Underwent C/S for breech presentation. See operative note for details of procedure. Pt did have a fever from chorioamnionitis. Was on Amp, Clinda, Gent for 24 hours afebrile. Pt was discharged home on POD # 2. transferred to [facility]. Lates Vital Signs Vital Signs Date Time Temp Pulse Resp B/P (MAP) Pulse Ox O2 Delivery O2 Flow Rate FiO2 04/19/18 03:05 97.9 79 20 108/63 (78) 94 Room Air Weight (Pounds): 243 Result Diagram: 04/18/18804 Condition: Improved Discharge: Home Home Meds Active Scripts Oxycodone Hcl/Acetaminophen (PERCOCET 5-325 MG TABLET) 1 Each Tablet, 1 TAB PO Q6H for PAIN, #30 TAB 0 Refills Prov:DELORIS DYE DO 04/19/18 Nifedipine (PROCARDIA) 10 Mg Capsule, 10 MG PO Q4H PRN for CONTRACTIONS, #20 CAPSULE 0 Refills Prov:DELORIS DYE DO 04/14/18 True Metrix Glucose Test Strip (True Metrix Glucose Test Strip) 1 Each Strip, BOX QID, #1 3 Refills Prov:DELORIS DYE DO 03/17/18 Lancets (Blood Lancets) 30 Gauge Each, BOX QID, #1 3 Refills Prov:DELORIS DYE DO 03/17/18 Blood-Glucose Meter (BLOOD GLUCOSE METER) 1 Each Each, EACH MC, #1 0 Refills Prov:DELORIS DYE DO 03/17/18 Reported Medications Vits W-Ca,Fe,Fa(<1MG) ( VITAMINS) 1 Each Tablet, 1 EACH PO DAILY, TAB 01/06/18 Follow up with: [facility] [phone], Dr. Dye [phone] Follow up in: 2 wks PO Discharge Diet: As Tolerates Discharge Activity: Pelvic Rest DELORIS DYE DO Apr 19, 2018 10:10
[2018-04-19] MEDS ORDERED: MEASLES,MUMP,RUBELLA VAC 0.5ML SUBQ ONE (15:20)
[2018-04-19] MEDS ORDERED: INFLUENZA VIRUS VAC 0.5ML SYR IM ONLY ONE (15:20)
[2018-04-19] MEDS ORDERED: DIPHTH/TETANUS/ACEL. PERTUSSIS IM ONLY ONE (15:20)
[2018-04-20] MEDS ORDERED: AMOX-559 PO (10:23)
[2018-04-20] MEDS ORDERED: METR500T54 PO (10:23)
== END 2018-04-19 12:08 | disposition home or self-care (01) | DRG 786 ==
LOC: OB 19:33
PROVIDERS: ADMIT Student in an Organized Health Care Education/Training Program; ATTEND Student in an Organized Health Care Education/Training Program
PROC: 10D00Z1 Extraction of Products of Conception, Low, Open Approach (ICD-10-PCS; principal; 2018-04-16)
PROC: 0UCC0ZZ Extirpation of Matter from Cervix, Open Approach (ICD-10-PCS; 2018-04-16)
DX: O60.23X1 Term delivery with preterm labor, third trimester, fetus 1 (principal); O34.33 Maternal care for cervical incompetence, third trimester; O41.1230 Chorioamnionitis, third trimester, not applicable or unspecified; O13.4 Gestational [pregnancy-induced] hypertension without significant proteinuria, complicating childbirth; O32.1XX0 Maternal care for breech presentation, not applicable or unspecified; Z3A.35 35 weeks gestation of pregnancy; Z37.0 Single live birth
CPT/HCPCS: 36415; 36416; 76815; 82948; 84112; 85025; 86703; 86850; 86900; 86901; 87071; 87073; 87077; 87081; 88307; J0290; J0690; J1580; J1885; J2270; J2405; J2590; J3010; J3490; J7050; J7120